=== PATIENT | male | born 1995 | race American Indian/Alaskan Native ===

== ENCOUNTER 2020-06-07 18:42 | Emergency (ER) | payer OTHER ==
[2020-06-07 19:05] VITALS: BP 119/86
--- NOTE | 2020-06-07 19:08 | Event Note ---
ED Screening Note Date of service: 06/07/20 Time: 19:07 ED Screening Note: Patient complains of abdominal pain and rectal pain x approximately 1 hour [employer] States constipation today, however no prior history of constipation or hemorrhoids per patient Pain worsens with defecation per patient This initial assessment/diagnostic orders/clinical plan/treatment(s) is/are subject to change based on patients health status, clinical progression and re- assessment by fellow clinical providers in the ED. Further treatment and workup at subsequent clinical providers discretion. Patient/guardian urged not to elope from the ED as their condition may be serious if not clinically assessed and managed. Initial orders include: Labs ACC
[2020-06-07 20:07] LABS: Basophils % (Auto) 0.3 % (0.0-1.8); Eosinophils # (Auto) 0.1 K/mm3 (0.0-0.4); Eosinophils % (Auto) 1.3 % (0.0-4.3); Hematocrit 45.4 % (35.5-45.6); Hemoglobin 14.8 gm/dl (11.8-15.2); Lymphocytes # (Auto) 1.7 K/mm3 (1.2-5.4); Lymphocytes % (Auto) 14.8 % (13.4-35.0); Mean Corpuscular HGB Conc 33 % (32-34); Monocytes # (Auto) 0.7 K/mm3 (0.0-0.8); Platelet Count 191 K/mm3 (140-440); Red Cell Distribution Width 15.4 % (13.2-15.2)
[2020-06-07 20:12] LABS: Mean Corpuscular Volume 66 fl (84-94)
[2020-06-07 20:28] LABS: Alanine Aminotransferase 25 units/L (7-56); Albumin 4.5 g/dL (3.9-5); BUN/Creatinine Ratio 11; Blood Urea Nitrogen 13 mg/dL (9-20); Calcium 9.7 mg/dL (8.4-10.2); Hemolysis Index 18
== END 2020-06-07 23:53 | disposition left against medical advice (07) ==
LOC: ED 18:42
DX: K62.89 Other specified diseases of anus and rectum (principal); Z53.21 Procedure and treatment not carried out due to patient leaving prior to being seen by health care provider
CPT/HCPCS: 36415; 80053; 83690; 85025